=== PATIENT | male | born 1970 | race Caucasian/White ===

== ENCOUNTER 2016-12-02 13:34 | Emergency (ER) | payer OTHER ==
--- NOTE | 2016-12-04 01:33 | ER ---
ADMIT: 12/02/2016 RM/LOC: ER [facility] MR#: [id number] [address] [address] [place] [address] Emergency Room Report SEX: M AGE: 46 : 1970 DATE: 12/02/2016 TIME: 1334 hours. Please refer to my T-sheet for complete H and P. Briefly, the patient is a 46-year-old who comes in with chest pain, left- sided, it felt like a muscle spasm. He has recently been going under a big workup for anemia, he is planning on getting an endoscopy done on Friday, upper and below. He is supposed to get an iron injection today. When he came in, he got out of the car and felt like his pec spasm and he felt very weak. It resolved, it lasted less than 10 minutes. He never had heart problems. He has had 2 transfusions recently because hemoglobin was down to 6.5. Says he has been feeling better now and he feels back to normal. PHYSICAL EXAMINATION: VITAL SIGNS: Stable. HEENT: Grossly normal. LUNGS: Clear. HEART: Regular. ABDOMEN: Soft. SKIN: No rash. EMERGENCY DEPARTMENT COURSE: His EKG was normal sinus rhythm, rate 90, no changes. Chest x-ray negative. CBC was normal except white count 4.5, hemoglobin 8.5. Chemistries normal except potassium 3.6, glucose 109. Troponin negative. He felt fine. I had a long discussion. He was ready for discharge. ASSESSMENT: 1. Atypical chest pain. 2. Anemia. PLAN: Continue current care. Follow up with Dr. Monroe, return if worse. John Alanis MD/ yayo JOB #: [id number] CC: John Alanis MD, Attending Physician UNKNOWN, Family Physician
[2016-12-04] MEDS ORDERED: PRILOSEC DPS20 MG PO (14:57)
[2016-12-04] MEDS ORDERED: CARAFATE DPS1 GM PO (14:57)
== END 2016-12-02 15:20 | disposition home or self-care (01) ==
LOC: ER 13:34
DX: R07.89 Other chest pain (principal); D64.9 Anemia, unspecified; Z88.1 Allergy status to other antibiotic agents; Z98.890 Other specified postprocedural states

== ENCOUNTER 2016-12-02 18:01 | Observation (INO) | payer OTHER ==
[~2016-12-02] VITALS: Ht 188 cm; Wt 94.0 kg
--- NOTE | ~2016-12-02 | ECH ---
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 The estimated left ventricular ejection fraction is 60%. Normal wall motion. Mild concentric left ventricular hypertrophy. The left atrium is mildly dilated by LA volume index measurement. Mild mitral regurgitation.. Procedure Type of Study TTE procedure:Echo Complete SF. Procedure Date Date: 12/03/2016 Start: 11:28 AM Technical Quality: Good visualization Indications:Atypical Chest Pain. Appropriate Use Criteria: 9 Height: 74 inches Weight: 207 pounds BSA: 2.21 m Rhythm: NSR HR: 73 bpm BP: 121/65 mmHg M-Mode/2D Measurements LV Diastolic Dimension: 4.65 cm LV Systolic Dimension: 2.93 cm LV Septum Diastolic: 1.11 cm LV PW Diastolic: 1.09 cm AO Root Dimension: 3.11 cm Cardiac Output: 6.78 l/min LA Dimension: 4.41 cm Cardiac Index: 3.07 l/min*m RV Diastolic Dimension: 3.67 cm LA volume index: 35 ml/m LVOT: 2.2 cm LVOT VTI: 24.45 cm RV Base: 4.7 cm LV Stroke volume: 92.9 ml RV Mid: 2.8 cm LV Stroke volume index: 42.04 ml/m TAPSE: 3.2 cm TDI-S': 15 cm/s Doppler Measurements AV Peak Velocity: 1.4 m/s MV Peak E-Wave: 0.95 m/s AV Peak Gradient: 7.84 mmHg MV Peak A-Wave: 0.78 m/s AV Mean Gradient: 4.66 mmHg MV E/A Ratio: 1.22 LVOT Peak Velocity: 1.32 m/s MV P1/2t: 60.1 msec AV Area (Continuity):3.11 cm MV Deceleration Time: 219.6 msec TR Velocity:2.52 m/s MV Area (PHT): 3.66 cm TR Gradient:25.36 mmHg PV Peak Velocity: 1.26 m/s Estimated RAP:3 mmHg PV Peak Gradient: 6.34 mmHg Estimated RVSP: 28 mmHg Estimated PASP: 28.36 mmHg E' Septal Velocity: 0.07 m/s A' Septal Velocity: 0.11 m/s E' Lateral Velocity: 0.11 m/s A' Lateral Velocity: 0.14 m/s RA Area: 17.53 cm Findings Left Ventricle The left ventricle is normal in size . Mild concentric left ventricular hypertrophy. Diastolic assessment reveals normal relaxation. Right Ventricle Mild to moderately dilated right ventricle. Left Atrium The left atrium is mildly dilated by LA volume index measurement. Right Atrium Normal right atrial size. Mitral Valve Normal mitral valve structure and function. Mild mitral regurgitation by color Doppler. Aortic Valve Normal aortic valve structure and function. Tricuspid Valve Normal tricuspid valve structure and function. Trivial tricuspid regurgitation by color Doppler. Normal pulmonary pressures. Pulmonic Valve Normal pulmonic valve structure and function. Trivial pulmonic valve regurgitation by color Doppler. Pericardial Effusion No evidence of pericardial effusion. Miscellaneous Visualized portions of the aortic root and ascending aorta appear normal in size. Pleural Effusion No evidence of pleural effusion. Contractility Score LV regional wall motion:(0-Non visualized 1-Normal 2-Hypokinesis 3-Akinesis 4-Dyskinesis 5-Aneurysm) Signature
--- NOTE | 2016-12-04 01:33 | ER ---
ADMIT: 12/02/2016 RM/LOC: 417 [facility] MR#: [id number] [address] [address] [place] [address] Emergency Room Report SEX: M AGE: 46 : 1970 DATE: 12/02/2016 TIME: 180 Please refer to my T-sheet for complete H and P. HISTORY OF PRESENT ILLNESS: Briefly, the patient is a 46-year-old who I actually saw this morning for some atypical chest pain. His workup at that time was negative. He has recently been diagnosed with anemia, most likely a GI bleed source. He is currently being worked up. He has been transferred 2 units. He was in here to get his iron transfusion when he had this episode earlier today of 10 minutes pain, spasm in his left pectoral to his back. I reassured him that first is to let him go home. He went over, got the iron transfusion when he was getting ready to leave, he had the spasm that lasted less than 3 minutes. He did not feel terribly short of breath. He felt a little dizzy and he came back in and he is very concerned. Does not smoke. PHYSICAL EXAMINATION: VITAL SIGNS: Stable. HEENT: Grossly normal. LUNGS: Clear. HEART: Regular. ABDOMEN: Soft. SKIN: No rash. NEUROLOGIC: Alert and oriented, nonfocal. EMERGENCY DEPARTMENT COURSE: His EKG was sinus rhythm, rate 75, no changes. I am redrawing the troponin and keep in the hospital. I talked to Dr. Marin. I am not going to repeat the other test at this time as his pain is gone. We are not going to give him aspirin because the patient is recently severely anemic, concern is upper GI bleed and the patient does not wanted it and I do not think he should have at this time. ASSESSMENT: 1. Atypical chest pain. 2. Anemia. PLAN: Admit. John Alanis MD/ yayo JOB #: [id number] CC: Juan Manuel Monroe MD, Attending Physician Juan Manuel Monroe MD, Family Physician
[2016-12-04] MEDS ORDERED: CARAFATE DPS1 GM PO (14:57)
[2016-12-04] MEDS ORDERED: PRILOSEC DPS20 MG PO (14:57)
--- NOTE | 2016-12-16 14:23 | CO ---
ADMIT: 12/02/2016 RM/LOC: 417 [facility] MR#: [id number] [address] [address] [place] [address] Consultation SEX: M AGE: 46 : 1970 DATE OF CONSULTATION: 12/03/2016 ATTENDING PHYSICIAN: Juan Manuel Monroe MD CONSULTING PHYSICIAN: Roberto Holly MD REASON FOR CONSULTATION: Atypical chest pain. HISTORY OF PRESENT ILLNESS: The patient is a pleasant [id number] that I had the opportunity to consult for Cardiology regarding his atypical chest pain. The patient has no personal past coronary artery disease. The patient admits to coronary artery disease risk factors in family relatives including his father who is prediabetic and is [id number]. The patient states he was admitted to the Emergency Department at [facility] yesterday. He states, his symptoms started 4 days ago when he developed pain in his left pectoralis muscle. He describes it as tender and it lasted for 2 to 3 minutes and he rated the pain 9/10. The pain also radiated to his back. The pain occurred when the patient was on his way to get an iron transfusion. The patient has recently been diagnosed with iron deficiency anemia, this occurred within the last 4 days. He said the pain went away with rest. He stated the pain felt like a Charley horse that you would feel in your leg. He admitted to having an episode of lightheadedness with the pain in his left pectoralis muscle. The patient states that this reoccurred when he received his blood transfusion. The patient states his insurance has maxed out he wants to get his heart checked out. In the past, he says he has had pain in his legs with activity, but it went away with rest. 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 The patient denied any nausea, vomiting, diarrhea, or chest pain at this time. The patient does admit to acid reflux history. He also admits to dyspnea with mild exertion. PAST MEDICAL HISTORY: Significant for gastroesophageal reflux disease, iron deficiency anemia, and hemorrhage. PAST SURGICAL HISTORY: Includes a cyst removal from his neck, tonsillectomy, and right testicle removal. HOME MEDICATIONS: 1. Carafate 1 g p.o. a.c. and at bedtime. 2. Protonix 40 mg p.o. b.i.d. 3. Colace 100 mg p.o. b.i.d. p.r.n. 4. Maalox 30 mL p.o. q.6 p.r.n. 5. Tylenol 650 mg p.o. q.4 p.r.n. FAMILY HISTORY: The patient admits that his father is prediabetic at age 78. He also has a maternal grandfather who has type 2 diabetes. He also states that his paternal grandfather has prostate cancer and is a life long smoker and he is 80 years old. The patient also states that his dad had a hiatal hernia. The patient denies any family history of heart disease or stroke. ADMIT: 12/02/2016 RM/LOC: 417 [facility] MR#: [id number] [address] [place] [id number] [address] [place] [address] Consultation SEX: M AGE: 46 : 1970 SOCIAL HISTORY: The patient currently resides in [place], [place] with his Fiancee and two kids, a 6-year-old girl and an 8-year-old boy. 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 He is not currently on a special diet. He denies caffeine use, alcohol use, or drug use currently or in the past. The patient states that he has not had an alcohol beverage for the last 15 years. ALLERGIES: NO KNOWN DRUG ALLERGIES. REVIEW OF SYSTEMS: Per Dr. Holly. GENERAL: The patient admits tiring easily especially within last week. Denies fatigue, fever, chills, sweats, rash, or weight loss. 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 ENT: Denies hearing loss or problems with nose, mouth or throat. RESPIRATORY: The patient admits to snoring loudly and tiring first thing in the morning lately. Otherwise, denies cough, sputum production, asthma, emphysema or bronchitis. Denies wakefulness at night. GASTROINTESTINAL: The patient admits to heartburn, regurgitation, and difficulty swallowing. No change in bowel habits. Denies dark or bloody stools. No history of ulcers, hiatal hernia, or gallbladder or liver disease. GENITOURINARY: Denies dysuria, hematuria, nocturia, urinary tract infection, or kidney stones. Denies history of renal insufficiency or failure. MUSCULOSKELETAL: Denies history of arthritis or gout. Denies muscle or joint pains. ENDOCRINE: Denies history of thyroid dysfunction or diabetes. HEMATOLOGIC: Denies history of anemia, easy bruising, or cancer. NEUROLOGIC: The patient admits to chronic headaches. Denies dizziness, syncope, stroke, seizures or numbness or tingling. PSYCHIATRIC: Denies history of mental illness or feelings of depression. PHYSICAL EXAMINATION: Per Dr. Holly. VITAL SIGNS: Temperature 97, pulse 69, respirations 18, blood pressure 121/65, oxygen saturation 94% on room air. In's and out's is positive 100 mL. The patient's weight is 207 pounds, he states that he is down 8 pounds since this last July. SKIN: [place], warm and dry. EYES: Sclerae clear. No xanthelasmas. ENT: Oral mucosa is pink and moist. No jugular venous distention or carotid bruits. CHEST: Respirations are even and unlabored. Lungs are clear to auscultation. HEART: Regular rate and rhythm. Normal S1, S2. No murmurs, rubs or gallops. ABDOMEN: Soft and nontender. MUSCULOSKELETAL: Gait is normal. EXTREMITIES: Peripheral pulses palpable. No clubbing, cyanosis or edema. Skin pallor. Capillary refill is less than 1 second. Warm extremities. PSYCHIATRIC: Alert and oriented. Mood and affect are appropriate. ADMIT: 12/02/2016 RM/LOC: 417 [facility] MR#: [id number] [address] [address] [place] JAVIER [place] [address] [place], [facility] Consultation SEX: M AGE: 46 : 1970 DIAGNOSTIC DATA: CK is 37, hemoglobin is 8.6, MB is 0.7, troponin is less than 0.015. Chest x-ray on December 02, revealed no acute cardiopulmonary process. There was no comparison. EKG revealed sinus rhythm and peak T-waves. ASSESSMENT: Per Dr. Holly. 1. Atypical chest pain. 2. Recent diagnosis of anemia. 3. Gastroesophageal reflux disease. PLAN: At this time, I have a very low suspicion for CAD, it sounds more musculoskeletal. We will order an echocardiogram today and if the results are normal, we can discharge the patient for his endoscopy tomorrow. If recurrent symptoms, we could do a treadmill in the future. Thank you for the cardiology consult. I have read and agreed with the documentation that has been completed regarding this visit. By signing this record, I attest that the documentation was completed in my physical presence and is an accurate record of the encounter. NATHALY Combs Student / Roberto Holly MD / modl JOB #: [id number] CC: Juan Manuel Monroe MD, Attending Physician Juan Manuel Monroe MD, Family Physician
--- NOTE | 2016-12-26 20:17 | HP ---
ADMIT: 12/02/2016 RM/LOC: [facility] MR#: [id number] [address] [id number] [place] [address] History and Physical SEX: M AGE: 46 : 1970 DATE OF SERVICE: CHIEF COMPLAINT: Atypical chest pain. HISTORY OF PRESENT ILLNESS: The patient is a 46-year-old, male, well known to myself, who presented for URI a couple weeks ago. I recommend he followup fasting for labs. He was asymptomatic at that time. He came in for lab a couple weeks later and was found to have a hemoglobin of 6.5, and denied any symptoms at that time, thus studies were ordered and he was found to be iron deficient. He was transfused with plan for endoscopy tomorrow 12/04/2016 with plan for EGD/colonoscopy. His only symptoms were reflux. He did not have any family history of colon cancer. However, he had an aunt that he is not related to by blood who did have colon cancer thus it has caused him a fair amount of anxiety. He was seen by myself yesterday in clinic as a followup. Subsequently, he went to the iron infusion center, had two episodes of chest pain, went to the ER twice, first time he was discharged, second time he was admitted for atypical chest pain. These episodes occur at rest, it felt like muscle cramping work heavy labor etc. He was fatigued, occasionally dizzy, but denies any sort of chest pain, left arm pain, or jaw pain. He does not have hypertension, hyperlipidemia, diabetes, smoking history, or premature family history of coronary artery disease. He denies any other concerns or complaints this time. PAST MEDICAL HISTORY: 1. GERD. 2. Anemia. PAST SURGICAL HISTORY: 1. Orchiectomy. 2. Tonsillectomy. ALLERGIES: NONE. MEDICATIONS: 1. Omeprazole 20 b.i.d. 2. Carafate 1 q.i.d. FAMILY HISTORY: No coronary or colon cancer. REVIEW OF SYSTEMS: He denies any fevers, chills, chest pain, shortness of breath, headaches, nausea, vomiting, numbness, tingling, vision changes, or melena. Previous to this he did have some chest pain and some dizziness. SOCIAL HISTORY: Denies tobacco, alcohol, drug use, or ETOH. He does have couple children. PHYSICAL EXAMINATION: VITAL SIGNS: Temperature 97.8, pulse 77, respirations 16, blood pressure 145/65, O2 sats 94%. GENERAL: He is alert, awake, oriented, anxious, in no acute distress. ADMIT: 12/02/2016 RM/LOC: [address] [place] [address] MR#: [id number] [place] [id number] JAVIER BELCHER [address] [place] [address] History and Physical SEX: M AGE: 46 : 1970 HEENT: Normocephalic and atraumatic. Pupils round and reactive to light. Extraocular muscles intact. HEART: Regular rate and rhythm. No murmurs, rubs, gallops. LUNGS: Clear to auscultation bilaterally. ABDOMEN: Soft, nontender, nondistended. EXTREMITIES: No clubbing, cyanosis, or edema. NEURO: Cranial nerves II through XII are grossly intact. No focal, motor, or sensory deficits. LABORATORY DATA: Cardiac enzymes are normal. White count 4.5, Hemoglobin 8.5, platelets 277. Chest x-ray, no acute cardiopulmonary process. BNP is . EKG is nonacute. ASSESSMENT: 1. . 2. Atypical chest pain. 3. Gastroesophageal reflux disease. 4. Anemia. 5. Anxiety. PLAN: We will check his hemoglobin, do feel likely that this is cardiac in nature, however, patient is really worried about this in addition the fact he has planned for endoscopy tomorrow, thus we will have Cardiology way in and see if they recommend any sort of preoperative testing from a cardiac standpoint or if they feel we should delay his endoscopy as they need to workup his anemia. This has been discussed with the patient. Juan Manuel Monroe MD/ yayo JOB #: [id number] CC: Juan Manuel Monroe, Attending Physician Juan Manuel Monroe, Family Physician
== END 2016-12-03 14:20 | disposition home or self-care (01) ==
LOC: ER 18:01 → 4PCU 19:00
PROVIDERS: ADMIT Family Medicine
DX: R07.89 Other chest pain (principal); K21.9 Gastro-esophageal reflux disease without esophagitis; D64.9 Anemia, unspecified; F41.9 Anxiety disorder, unspecified; Z79.899 Other long term (current) drug therapy; Z98.890 Other specified postprocedural states

== ENCOUNTER → 2016-12-02 | Outpatient (CLI) | payer OTHER ==
[~2016-12-02] MED LIST: CARAFATE DPS1 GM PO; PRILOSEC DPS20 MG PO
== END | disposition home or self-care (01) ==
LOC: THER.SSS 14:24 → EDSTATUS 14:59 → THER.SSS 15:37
DX: D64.9 Anemia, unspecified (principal)

== ENCOUNTER 2016-12-03 19:07 | Emergency (ER) | payer OTHER ==
[2016-12-04] MEDS ORDERED: CARAFATE DPS1 GM PO (14:57)
[2016-12-04] MEDS ORDERED: PRILOSEC DPS20 MG PO (14:57)
--- NOTE | 2016-12-05 11:07 | ER ---
ADMIT: 12/03/2016 RM/LOC: ER [facility] MR#: [id number] [address] [address] [place] [address] Emergency Room Report SEX: M AGE: 46 : 1970 DATE: 12/03/2016 CHIEF COMPLAINT: Syncopal episode. HISTORY OF PRESENT ILLNESS: A pleasant 46-year-old, white male, who presents to the ER following a syncopal episode at his home. History is provided primarily by his significant other who is at bedside. She states the patient was about to get into the shower when he complained of some increased dizziness and flushing, and began to fall into her arms. She reports that she was able to get him to the ground in a supine position where he recovered within a minute. He was initially confused. However, she states within a minute he was alert and appropriate again. The patient states he does not remember the event. He states he remembers getting up to the shower, feeling dizzy, and the next thing he knew he was on the floor. Significant other reports that his left knee did get kind of caught under him as she helped him to the floor. At present, the patient admits to some weakness and left knee pain. Denies any chest pain, shortness of breath, abdominal pain, nausea, vomiting, or weakness. The patient was discharged from [place] this morning following a cardiac rule out observation admission. He was diagnosed with atypical chest pain with normal ABRIL and cardiac workup. He is to have an EGD colonoscopy tomorrow morning secondary to some anemia with Dr. Monroe. He is to start his bowel prep tonight. The patient states his last meal was yesterday and feels like some of this could be related to the fact that he has not been eating and drinking. PHYSICAL EXAMINATION: VITAL SIGNS: The patient was seen and examined. He is afebrile and nontoxic. He is in no acute distress. HEENT: No current trauma. Normal eye inspection reveals equal and reactive to light. No obvious lacerations in the oropharynx. NECK: Supple and nontender. He has normal range of motion. RESPIRATORY: No distress. Breath sounds are normal. No wheezes, rales, or rhonchi. HEART: Regular rate and rhythm. No murmurs, gallops, or rubs. ABDOMEN: Soft and nontender. SKIN: Warm and dry. EXTREMITIES: Has some tenderness to the lateral aspect of the left knee. He has a full range of motion. No pedal edema. NEURO: He is alert, oriented x4. His speech is normal. He answers questions appropriately. Strength is equal in the upper and lower extremities compared bilaterally. Sensation is intact bilaterally upper and lower extremities. LABORATORY AND IMAGING: Did get an EKG which showed a sinus rhythm. No acute ST changes. Basic labs showed white count 6.6, hemoglobin 8.8, hematocrit 29.9, platelets 273. Sodium 141, potassium 3.7, CO2 of 25, BUN 8, glucose 91, creatinine 0.8. Cardiac enzymes were negative. I did discuss this patient with Dr. Salazar, Resident with Dr. Monroe's group today as she is familiar with the patient admission and current medical problems. She did have a discussion with the patient. Given his current ADMIT: 12/03/2016 RM/LOC: [facility] MR#: [id number] [address] [place] [id number] [place] [address] Emergency Room Report SEX: M AGE: 46 : 1970 state, I did recommend that he go ahead and delay his bowel prep and procedures tomorrow that would be okay for him to eat tonight and follow up with Dr. Monroe later this week to reschedule his procedures. She also agreed that this incident was likely vasovagal in nature secondary to him not eating and his anxiety regarding his upcoming procedure. IMPRESSION: Vasovagal syncopal episode. DISPOSITION: He is to return home and rest. Increase his fluids as tolerated. He is to go ahead and eat tonight. He should continue using his Carafate, however, he can hold off on the bowel prep. He is to follow up with Dr. Mornoe to reschedule and coordinate his EGD and colonoscopy. He should certainly return to the ER with any worsening signs or symptoms. Questions were sought and answered to the best of my ability and the patient's satisfaction. He was discharged in stable condition to follow up with Dr. Monroe later this week. NATHALY Brown / John Alanis MD / yayo JOB #: [id number] CC: Justice Olson MD, Attending Physician Juan Manuel Monroe MD, Family Physician
== END 2016-12-03 21:40 | disposition home or self-care (01) ==
LOC: ER 19:07
DX: R55 Syncope and collapse (principal); D64.9 Anemia, unspecified

== ENCOUNTER 2016-12-05 07:00 | Day surgery (SDC) | payer OTHER ==
[~2016-12-05] VITALS: Ht 188 cm; Wt 90.3 kg
--- NOTE | 2016-12-09 08:13 | OR ---
ADMIT: 12/05/2016 RM/LOC: [facility] MR#: [id number] [facility] [address] [address] [place] [address] Operative/Delivery Room Report SEX: M AGE: 46 : 1970 SURGERY DATE: 12/05/2016 SURGEON: Randy Estrada MD PREOPERATIVE DIAGNOSIS: Iron-deficiency anemia. POSTOPERATIVE DIAGNOSES: 1. Large hiatal hernia. 2. Normal-appearing colon and terminal ilium. PROCEDURES: 1. Esophagogastroduodenoscopy. 2. Complete colonoscopy with some terminal ileoscopy. ANESTHESIA: IV general. DESCRIPTION OF PROCEDURE: The patient was taken to the endoscopy suite and placed left side down on his hospital cart. A bite-block was placed and IV sedation was established. The upper endoscope was advanced through the oropharynx into the esophagus without difficulty. The scope was pushed under visualization of the stomach. Air was used to insufflate the stomach. The pylorus was intubated. The first and second portions of the duodenum were inspected, even into the third portion, and this all appeared normal. The scope was withdrawn to the stomach. The gastric antrum, body, and fundus appeared normal with the exception of a large hiatal hernia seen on retroflexion. The scope was withdrawn to the gastroesophageal junction, which was unremarkable. The gastroesophageal junction appeared normal without inflammatory change. The remainder of the esophageal mucosa was unremarkable upon withdrawal of the scope. Next, a rectal exam was performed, there were no palpable abnormalities. The flexible colonoscope was advanced under direct visualization through the entire colon to the level of the cecum. The cecum ADMIT: 12/05/2016 RM/LOC: [facility] MR#: [id number] [address] [place], [place] [address] [address] JAVIER [address] [place] [id number] Operative/Delivery Room Report SEX: M AGE: 46 : 1970 was identified by its anatomic landmarks and the ileocecal valve. Care was taken upon withdrawal of scope to examine mucosa of the colon. The terminal ileum was intubated and the ilium was intubated deeply. No inflammatory change, ulceration, or other abnormality was found. The prep was excellent. The cecum, ascending colon, transverse colon, and descending colon appeared normal. No inflammatory change, polyp, or mass was found. Careful inspection revealed only occasional diverticulum through the sigmoid colon. The scope was withdrawn to the rectum and retroflexed, and this was normal on inspection. The patient tolerated the procedure well and was transferred to the recovery area in stable condition. Randy Estrada MD/ yayo JOB #: [id number] CC: Randy Estrada, Attending Physician Juan Manuel Monroe, Family Physician Juan Manuel Monroe MD
== END 2016-12-05 10:33 | disposition home or self-care (01) ==
LOC: SSS 07:00
PROC: 0DJD8ZZ Inspection of Lower Intestinal Tract, Via Natural or Artificial Opening Endoscopic (ICD-10-PCS; principal; 2016-12-05)
PROC: 0DJ08ZZ Inspection of Upper Intestinal Tract, Via Natural or Artificial Opening Endoscopic (ICD-10-PCS; principal; 2016-12-05)
DX: D50.9 Iron deficiency anemia, unspecified (principal); K44.9 Diaphragmatic hernia without obstruction or gangrene; Z98.890 Other specified postprocedural states; Z88.1 Allergy status to other antibiotic agents; Z79.899 Other long term (current) drug therapy